=== PATIENT | male | born 1965 | race Two or more races ===

== ENCOUNTER 2020-08-23 13:26 | Outpatient (REF) | payer OTHER, SELFPAY | END 2020-08-23 13:27 | disposition home or self-care (01) | LOC: HO.LAB 13:26 | PROVIDERS: Visit Provider Internal Medicine | DX: Z20.828 Contact with and (suspected) exposure to other viral communicable diseases (principal) | CPT/HCPCS: U0003 ==

== ENCOUNTER 2020-09-26 16:41 | Outpatient (REF) | payer OTHER, SELFPAY | END 2020-09-26 16:42 | disposition home or self-care (01) | LOC: HO.LAB 16:41 | PROVIDERS: Internal Medicine; Visit Provider Internal Medicine | DX: Z20.828 Contact with and (suspected) exposure to other viral communicable diseases (principal) | CPT/HCPCS: U0003 ==

== ENCOUNTER 2021-01-04 12:50 | Outpatient (REF) | payer OTHER, SELFPAY ==
--- NOTE | ~2021-01-04 | US_ITS ---
EXAMINATION: US SOFT TISSUE NONVASCULAR CLINICAL INFORMATION: 55-year-old male with 2-3 month history palpable area mid medial right thigh. COMPARISON: None TECHNIQUE: Ultrasound of the right thigh is targeted to the area of clinical concern. Patient is able to point to the area of concern at time of imaging. Grayscale imaging and color Doppler are performed. FINDINGS: The submitted images suggest subtle heterogeneous echotexture within the mid medial thigh musculature at site of clinical concern measuring approximately 3.0 x 1.2 x 2.8 cm in size. There is no hyperemia. No cystic mass or edema tracking in soft tissue planes. There is no skin thickening. No abnormality subcutaneous space. US/US extremity nonvascular lowery IMPRESSION: Subtle nonspecific heterogeneous echotexture mid medial thigh musculature in area of clinical concern measuring approximately 3.0 x 1.2 x 2.8 cm. Recommend further evaluation with MRI without and with gadolinium contrast.
== END 2021-01-04 12:51 | disposition home or self-care (01) ==
LOC: HO.US 12:50
PROVIDERS: Visit Provider Internal Medicine
DX: R22.41 Localized swelling, mass and lump, right lower limb (principal)
CPT/HCPCS: 76882

== ENCOUNTER 2021-06-16 09:11 | Outpatient (REF) | payer OTHER, SELFPAY ==
[2021-06-16 10:23] LABS: Alanine Aminotransferase 25 U/L (0-40); Albumin Level 4.5 g/dL (3.5-5.0); Alkaline Phosphatase 91 U/L (39-117); Anion Gap 9 (12-20); Aspartate Amino Transferase 21 U/L (5-37); Bilirubin Total 1.2 mg/dL (0.0-1.0); Blood Urea Nitrogen 14 mg/dL (9-16); Calcium 9.5 mg/dL (8.4-10.2); Carbon Dioxide 30 mmol/L (22-29); Chloride 105 mmol/L (96-108); Cholesterol 156 mg/dL; Estimated Glomerular Filt Rate > 60; Glucose Fasting 148 mg/dL (60-99); HDL Cholesterol 37 mg/dL; LDL Cholesterol Calculated 96 mg/dl; Potassium 4.3 mmol/L (3.3-5.1); Sodium 140 mmol/L (135-145); Total Protein 7.1 g/dL (6.5-8.0); Triglycerides 118 mg/dL
[2021-06-21 12:41] LABS: Vitamin D 25-OH, D2 6 ng/mL; Vitamin D 25-OH, D3 16 ng/mL; Vitamin D 25-OH, Total 22 ng/mL (30-100)
== END 2021-06-16 09:12 | disposition home or self-care (01) ==
LOC: HO.LAB 09:11
PROVIDERS: PCP Internal Medicine; Visit Provider Internal Medicine
DX: R73.02 Impaired glucose tolerance (oral) (principal); E78.5 Hyperlipidemia, unspecified; E55.9 Vitamin D deficiency, unspecified
CPT/HCPCS: 36415; 80053; 80061; 82306

== ENCOUNTER 2021-07-18 10:44 | Outpatient (REF) | payer OTHER, SELFPAY ==
--- NOTE | ~2021-07-18 | XR_ITS ---
EXAMINATION: PRE-MRI ORBIT CLINICAL INFORMATION: Rule out implant prior to MRI COMPARISON: None TECHNIQUE: 3 views of the orbits FINDINGS: No radiopaque foreign body about the orbits is seen. There may be left maxillary sinus disease. There is dental hardware. XR/XR pre mri screening IMPRESSION: No radiopaque soft tissue foreign body seen about the orbits.
--- NOTE | ~2021-07-18 | MR_ITS ---
EXAMINATION: MR FEMUR WITHOUT AND WITH CONTRAST, RIGHT CLINICAL INFORMATION: Right thigh medial mass. COMPARISON: Extremity ultrasound dated 01/04/2021. TECHNIQUE: Multisequence MR imaging of the right femur was performed before and after the IV administration of 10 mL Gadavist contrast on a high-field strength scanner. FINDINGS: BONE: No abnormal marrow signal. No lytic or blastic osseous lesion. No postcontrast enhancement. MUSCLES/TENDONS: No evidence of acute muscle or tendon injury. No edema or enhancement to suggest acute strain or partial tearing. Within the medial aspect of the vastus medialis muscle in the region of the overlying skin markers there is a fat signal focus measuring 2.9 x 1.9 x 5.5 cm (AP x ML x CC). No postcontrast enhancement, vascularity, or septation. 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 SOFT TISSUES: No additional soft tissue mass or fluid collection. MR/MR femur RT wo/w con IMPRESSION: Within the medial aspect of the vastus medialis muscle in the region of the overlying skin markers there is a fat signal focus measuring up to 5.5 cm without postcontrast enhancement, vascularity, or septations. 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
== END 2021-07-18 10:45 | disposition home or self-care (01) ==
LOC: HO.MRI 10:44
PROVIDERS: PCP Internal Medicine; Visit Provider Internal Medicine
DX: R22.41 Localized swelling, mass and lump, right lower limb (principal)
CPT/HCPCS: 73720; A9585

== ENCOUNTER 2021-07-21 08:46 | Outpatient (REF) | payer OTHER, SELFPAY ==
[2021-07-21 09:43] LABS: Alanine Aminotransferase 24 U/L (0-40); Albumin Level 4.3 g/dL (3.5-5.0); Alkaline Phosphatase 90 U/L (39-117); Anion Gap 9 (12-20); Aspartate Amino Transferase 21 U/L (5-37); Blood Urea Nitrogen 9 mg/dL (9-16); Calcium 9.3 mg/dL (8.4-10.2); Carbon Dioxide 29 mmol/L (22-29); Chloride 107 mmol/L (96-108); Estimated Glomerular Filt Rate > 60; Glucose Fasting 130 mg/dL (60-99); Potassium 4.2 mmol/L (3.3-5.1); Sodium 141 mmol/L (135-145); Total Protein 6.8 g/dL (6.5-8.0)
== END 2021-07-21 08:47 | disposition home or self-care (01) ==
LOC: HO.LAB 08:46
PROVIDERS: PCP Internal Medicine; Visit Provider Internal Medicine
DX: R73.02 Impaired glucose tolerance (oral) (principal)
CPT/HCPCS: 36415; 80053

== ENCOUNTER 2021-12-04 11:16 | Emergency (ER) | payer OTHER, SELFPAY ==
--- NOTE | ~2021-12-04 | US_ITS ---
EXAMINATION: US ABDOMEN LIMITED CLINICAL INFORMATION: Right upper quadrant pain.. COMPARISON: None TECHNIQUE: Real-time imaging of the gallbladder FINDINGS: The gallbladder is upper normal in size. The gallbladder appears filled with layering echogenic material probably representing a combination of sludge and small stones or gravel. Gallbladder wall does not appear thickened measuring 2 mm. There is no pericholecystic fluid. The common bile duct is normal in caliber measuring 0.4 cm. There is a 1 cm cyst in the right lobe. US/US abdomen limited IMPRESSION: Upper normal-size gallbladder. Dependent layering echogenic material probably representing a combination of sludge and small stones or gravel.
[2021-12-04 11:46] VITALS: BP 141/81; PULSE 64; RESP 18; TEMP 36.3; O2SAT 98; BMI 34.7
--- NOTE | 2021-12-04 11:56 | ECG_ITS ---
Test Reason : UPPER ABDOMINAL PAIN Blood Pressure : / mmHG Vent. Rate : 064 BPM Atrial Rate : 064 BPM P-R Int : 146 ms QRS Dur : 088 ms QT Int : 394 ms P-R-T Axes : 037 -09 034 degrees QTc Int : 406 ms Normal sinus rhythm with sinus arrhythmia Normal ECG No previous ECGs available Referred By: Generic ED Physician Electronically Signed By:GOMEZ SULLIVAN MD
[2021-12-04 12:14] LABS: MANUAL DIFF FLAG NO
[2021-12-04 12:16] LABS: Basophils Percent Auto 0.4 % (0-2); Eosinophils Absolute Auto 0.1 X10*3/uL (0.0-0.4); Eosinophils Percent Auto 0.9 % (0-4); Hematocrit 40.6 % (42.0-52.0); Hemoglobin 14.2 g/dl (14.0-18.0); Imm Gran Abs Auto 0.04 X10*3/uL (0.00-0.03); Imm Gran Pct Auto 0.4 % (0.0-0.4); Lymphocytes Absolute Auto 1.7 X10*3/uL (1.2-4.9); Lymphocytes Percent Auto 18.4 % (20-40); Mean Corpuscular Hemoglobin 30.3 pg (27.0-33.0); Mean Corpuscular Volume 86.6 fL (80.0-98.0); Mean Platelet Volume 10.4 fL (9.4-12.4); Monocytes Absolute Auto 0.7 X10*3/uL (0.1-1.2); Neutrophils Absolute Auto 6.8 x10*3/uL (2.0-8.3); Neutrophils Percent Auto 72.9 % (45-73); Platelet Count 203 X10*3/uL (160-400); Red Blood Count 4.69 X10*6/uL (4.60-5.80); Red Cell Distribution Width 11.6 % (11.0-16.0); White Blood Count 9.3 X10*3/uL (4.8-10.8)
[2021-12-04 12:35] LABS: Alanine Aminotransferase 22 U/L (0-40); Albumin Level 4.6 g/dL (3.5-5.0); Alkaline Phosphatase 88 U/L (39-117); Anion Gap 9 (12-20); Aspartate Amino Transferase 19 U/L (5-37); Bilirubin Total 0.7 mg/dL (0.0-1.0); Blood Urea Nitrogen 8 mg/dL (9-16); Calcium 9.8 mg/dL (8.4-10.2); Carbon Dioxide 29 mmol/L (22-29); Chloride 104 mmol/L (96-108); Estimated Glomerular Filt Rate > 60; Glucose Random 144 mg/dL (60-115); Potassium 4.7 mmol/L (3.3-5.1); Sodium 137 mmol/L (135-145); Total Protein 7.3 g/dL (6.5-8.0)
[2021-12-04 12:40] LABS: Troponin-I High Sensitivity < 3.5 ng/L (<3.5-35.0)
[2021-12-04 13:02] LABS: Lipase 22 U/L (8-78)
--- NOTE | 2021-12-04 13:26 | ED_ITS ---
HPI - Abdominal Pain General Chief Complaint: Abdominal Pain Stated Complaint: upper abd pain quest gall bladder Time Seen by Provider: 12/04/21 12:42 Source: patient and felt dyeing machine tender Mode of arrival: ambulatory Limitations: language barrier History of Present Illness HPI narrative: 56-year-old male with a history of diabetes, depression here with reports epigastric pain/RUQ which radiates to the back since 04:00 o'clock this morning. No nausea, vomiting, diarrhea, constipation, urinary symptoms, fevers or chil ls. Patient has had intermittent episodes over the last month that it occurs after eating food Related Data Home Medications Medication Instructions Recorded Confirmed acetaminophen 500 mg tablet 0 mg PO 12/26/20 11/30/21 fluoxetine 20 mg capsule 0 mg PO 12/26/20 11/30/21 fluticasone propionate 50 1 spray INTRANASAL DAILY 12/26/20 11/30/21 mcg/actuation nasal spray,suspension ibuprofen 800 mg tablet 800 mg PO TID 12/26/20 11/30/21 zolpidem 10 mg tablet 10 mg PO BEDTIME PRN 12/26/20 11/30/21 Allergies Allergy/AdvReac Type Severity Reaction Status Date / Time No Known Allergies Allergy Verified 11/30/21 09:12 [No Known Allergies*] Review of Systems Review of Systems Yes all other systems are reviewed and are negative Constitutional: Reports no additional constitutional complaints, Denies body ache(s), Denies chills, Denies fever(s), Denies headache(s) and Denies weakness Eyes: Reports no additional eye complaints and Denies change in vision Reports system reviewed and no additional complaints, except as documented, Denies dizziness, Denies headache(s), Denies nasal congestion, Denies nasal discharge and Denies neck pain Cardiovascular: Reports no additional cardiovascular complaints, Denies chest pain, Denies leg edema and Denies dyspnea Respiratory: Reports no additional respiratory complaints, Denies cough and Denies dyspnea Gastrointestinal: Reports no additional gastrointestinal complaints, Reports abdominal pain, Denies diarrhea, Denies nausea and Denies vomiting Genitourinary: Denies urinary incontinence Musculoskeletal: Reports no additional musculoskeletal complaints, Denies back pain, Denies arthralgias, Denies joint swelling, Denies neck pain, Denies numbness and Denies tingling Skin/Breast: Reports system reviewed and no additional complaints, except as docu and Denies rash Reports system reviewed and no additional complaints, except as documented, Denies Abnormal speech present, Denies dizziness, Denies headache(s), Denies numbness, Denies tingling and Denies weakness PMFSH Past Medical History Attestation statement: The following information was validated with the patient. Source: old records reviewed and nursing notes reviewed Medical History Allergic rhinitis Class 1 obesity with body mass index (BMI) of 33.0 to 33.9 in adult Depression Diabetes mellitus Hypovitaminosis D Impaired glucose tolerance Insomnia Left elbow pain Mass of right thigh Mild recurrent major depression Right upper quadrant abdominal pain Surgical History History of appendectomy History of eye surgery Family History Family History Father Diabetes Stroke Mother Skin cancer Son In good health Daughter In good health Social History Social History Housing: House Alcohol intake: never Patient Tobacco Use Status: Never used Tobacco e-Cigarette/Vaping Use: Never Used Second Hand Smoke Exposure: No Advance Directives: No Advance Directives Information Provided: No service: No Current occupational status: retired Physical Exam ED Vital Signs: Vital Signs - 24 hr 12/04/21 11:46 12/04/21 13:31 Temperature 97.4 F 98.0 F Pulse Rate 64 56 Respiratory Rate 18 18 Blood Pressure 141/81 H 147/80 H Pulse Oximetry 98 97 BMI result Body Mass Index 34.7 Const General: cooperative, healthy appearing, comfortable and no acute distress Orientation/consciousness: patient oriented x3 Limitations: no limitations HENMT Head: Yes normal to inspection Ears: hearing grossly normal bilaterally General nose exam: Normal external nose present Face and sinus: Yes normal facial exam Mouth: Normal oral and palatal mucosa present Throat: Yes posterior oropharynx normal and Yes tonsils normal Eyes General: appearance normal, both eyes and all related structures Pupils: Equal, round and reactive pupils present Neck Neck: Yes normal visual inspection, Yes full ROM, Yes no lymphadenopathy and Yes no meningeal signs Chest Chest palpation & inspection: normal inspection of the chest Resp Effort & Inspection: normal respiratory effort Auscultation: clear to auscultation bilaterally Cardio Rate: regular rate Peripheral pulses: Peripheral pulses 2+ throughout GI Inspection: Yes normal to inspection Palpation (GI): Soft to palpation and Tenderness to palpation present (GI) (Right upper quadrant with guarding. No rebound) Auscultation: normal bowel sounds General: Yes no CVA tenderness Back/Spine/Pelvis Back: no CVA tenderness Skin General skin exam: no rashes or lesions noted Neuro General: patient oriented x3, moves all extremities and no meningeal signs Cranial nerves: Yes CN's II-XII intact bilaterally, Yes Equal, round and reactive pupils present, Yes Bilaterally intact EOM present, Yes Nystagmus not present, Yes Normal facial strength present and Yes Midline tongue present Cognition (Neuro): normal cognition Speech: No Abnormal speech present Gait exam (Neuro): Normal gait present Motor exam (neuro): 5/5 motor strength present throughout Sensory Exam: Normal double simultaneous stimulation for sensation Extrem General: Yes normal to inspection, Yes full ROM and Yes capillary refill normal Course Course Course Narrative: 56-year-old male here with intermittent episodes of epigastric pain/RUQ which occurs after eating now with having episodes since 04:00 o'clock this morning with no associated vomiting, diarrhea or fever. Will check labs, UA, abdominal ultrasound. Will check EKG due to age 1500-labs, UA, EKG are unremarkable. Ultrasound shows upper normal size gallbladder with dependent sludge and/or small stones. No evidence of gallbladder wall thickening. No pericholecystic fluid. Patient is feeling improved when I re-evaluated him. He is tolerating p.o.. We discussed he should follow-up outpatient with General surgery. We discussed following a low- fat diet at home. Recommended he return for severe pain, vomiting or fever. Comfortable discharge home. MDM - Abdominal Pain MDM Narrative Medical decision making narrative: Pancreatitis, gastritis, GERD, cholecystitis Medical Records Attestation: I reviewed the patient's medical records. Lab Data Attestation: I reviewed the patient's lab results. Result diagrams: 12/04/21 12:08 12/04/21 12:08 Labs: Lab Results 12/04/21 12/04/21 12/04/21 Range/Units 12:08 12:08 12:08 WBC 9.3 (4.8-10.8) X10*3/uL RBC 4.69 (4.60-5.80) X10*6/uL Hgb 14.2 (14.0-18.0) g/dl Hct 40.6 L (42.0-52.0) % MCV 86.6 (80.0-98.0) fL MCH 30.3 (27.0-33.0) pg MCHC 35.0 (31.0-36.0) g/dl RDW 11.6 (11.0-16.0) % Plt Count 203 (160-400) X10*3/uL MPV 10.4 (9.4-12.4) fL Immature Gran % (Auto) 0.4 (0.0-0.4) % Neut % (Auto) 72.9 (45-73) % Lymph % (Auto) 18.4 L (20-40) % Millard % (Auto) 7.0 (2-11) % Eos % (Auto) 0.9 (0-4) % Baso % (Auto) 0.4 (0-2) % Lymph # (Auto) 1.7 (1.2-4.9) X10*3/uL Millard # (Auto) 0.7 (0.1-1.2) X10*3/uL Eos # (Auto) 0.1 (0.0-0.4) X10*3/uL Baso # (Auto) 0.0 (0.0-0.2) X10*3/uL Abs Immat Gran (auto) 0.04 H (0.00-0.03) X10*3/uL Absolute Neuts (auto) 6.8 (2.0-8.3) x10*3/uL Absolute Nucleated RBC 0.000 (0.0-0.012) X10*3/uL Nucleated RBC % (auto) 0.0 (0.0-0.2) /100WBC Sodium 137 (135-145) mmol/L Potassium 4.7 (3.3-5.1) mmol/L Chloride 104 (96-108) mmol/L Carbon Dioxide 29 (22-29) mmol/L Anion Gap 9 L (12-20) BUN 8 L (9-16) mg/dL Creatinine 0.94 (0.5-1.4) mg/dL Estim Creat Clear Calc 108.0 Estimated GFR > 60 Random Glucose 144 H (60-115) mg/dL Calcium 9.8 (8.4-10.2) mg/dL Total Bilirubin 0.7 (0.0-1.0) mg/dL AST 19 (5-37) U/L ALT 22 (0-40) U/L Alkaline Phosphatase 88 (39-117) U/L Troponin I High Sens < 3.5 (<3.5-35.0) ng/L Total Protein 7.3 (6.5-8.0) g/dL Albumin 4.6 (3.5-5.0) g/dL Lipase 22 (8-78) U/L Urine Color Urine Appearance Urine pH (5.0-8.0) Ur Specific Williams (1.005-1.025) Urine Protein (NEG-TRACE) MG/DL Urine Glucose (UA) (NEG) MG/DL Urine Ketones (NEG) MG/DL Urine Blood (NEG) Urine Nitrite (NEG) Ur Leukocyte Esterase (NEG) Urine RBC (0) /HPF Urine WBC (0-4) /HPF Ur Squamous Epith Cells /LPF Urine Bacteria /LPF 12/04/21 Range/Units 13:40 WBC (4.8-10.8) X10*3/uL RBC (4.60-5.80) X10*6/uL Hgb (14.0-18.0) g/dl Hct (42.0-52.0) % MCV (80.0-98.0) fL MCH (27.0-33.0) pg MCHC (31.0-36.0) g/dl RDW (11.0-16.0) % Plt Count (160-400) X10*3/uL MPV (9.4-12.4) fL Immature Gran % (Auto) (0.0-0.4) % Neut % (Auto) (45-73) % Lymph % (Auto) (20-40) % Millard % (Auto) (2-11) % Eos % (Auto) (0-4) % Baso % (Auto) (0-2) % Lymph # (Auto) (1.2-4.9) X10*3/uL Millard # (Auto) (0.1-1.2) X10*3/uL Eos # (Auto) (0.0-0.4) X10*3/uL Baso # (Auto) (0.0-0.2) X10*3/uL Abs Immat Gran (auto) (0.00-0.03) X10*3/uL Absolute Neuts (auto) (2.0-8.3) x10*3/uL Absolute Nucleated RBC (0.0-0.012) X10*3/uL Nucleated RBC % (auto) (0.0-0.2) /100WBC Sodium (135-145) mmol/L Potassium (3.3-5.1) mmol/L Chloride (96-108) mmol/L Carbon Dioxide (22-29) mmol/L Anion Gap (12-20) BUN (9-16) mg/dL Creatinine (0.5-1.4) mg/dL Estim Creat Clear Calc Estimated GFR Random Glucose (60-115) mg/dL Calcium (8.4-10.2) mg/dL Total Bilirubin (0.0-1.0) mg/dL AST (5-37) U/L ALT (0-40) U/L Alkaline Phosphatase (39-117) U/L Troponin I High Sens (<3.5-35.0) ng/L Total Protein (6.5-8.0) g/dL Albumin (3.5-5.0) g/dL Lipase (8-78) U/L Urine Color YELLOW Urine Appearance CLEAR Urine pH 6.5 (5.0-8.0) Ur Specific Williams 1.015 (1.005-1.025) Urine Protein NEG (NEG-TRACE) MG/DL Urine Glucose (UA) NEG (NEG) MG/DL Urine Ketones NEG (NEG) MG/DL Urine Blood TRACE (NEG) Urine Nitrite NEG (NEG) Ur Leukocyte Esterase NEG (NEG) Urine RBC 1-4 (0) /HPF Urine WBC 0 (0-4) /HPF Ur Squamous Epith Cells NONE /LPF Urine Bacteria NONE /LPF Imaging Data US - abdomen: Attestation: I personally reviewed and interpreted this imaging study as follows: Radiologist's impression: FINDINGS: The gallbladder is upper normal in size. The gallbladder appears filled with layering echogenic material probably representing a combination of sludge and small stones or gravel. Gallbladder wall does not appear thickened measuring 2 mm. There is no pericholecystic fluid. The common bile duct is normal in caliber measuring 0.4 cm. There is a 1 cm cyst in the right lobe. US/US abdomen limited IMPRESSION: Upper normal-size gallbladder. Dependent layering echogenic material probably representing a combination of sludge and small stones or gravel. ECG Data Attestation: I personally reviewed and interpreted this ECG as follows: ECG interpretation date: 12/04/21 ECG interpretation time: 11:59 Interpretation: Normal sinus rhythm with sinus arrhythmia with a rate of 64, normal LA, normal QRS, normal QT Discharge Plan Discharge Clinical Impression: Gallstones Patient Disposition: Home, Self-Care Instructions: Gallstones (ED) Additional Instructions: Low-fat diet. Fat will trigger attacks of pain Call the surgeon to follow-up Prescriptions: No Action zolpidem 10 mg tablet 10 mg PO BEDTIME PRN0RF fluoxetine 20 mg capsule 0 mg PO 0RF fluticasone propionate 50 mcg/actuation spray,suspension 1 spray intranasal DAILY 0RF ibuprofen 800 mg tablet 800 mg PO TID 0RF acetaminophen 500 mg tablet 0 mg PO 0RF Referrals: Joe Dennis MD [Physician] - 2 days Print Language: Maldivian
[2021-12-04 13:31] VITALS: BP 147/80; PULSE 56; RESP 18; TEMP 36.7; O2SAT 97
[2021-12-04] MEDS: Ketorolac Tromethamine 60 MG/2 ML VIAL IM (13:48)
[2021-12-04 13:52] LABS: Appearance Urine CLEAR; Color Urine YELLOW; Glucose Urine UA NEG (NEG); Leukocyte Esterase Urine NEG (NEG); Nitrite Urine NEG (NEG); PH 6.5 (5.0-8.0); Specific Gravity - Urine 1.015 (1.005-1.025); UACC Culture Trigger NO; Urine Blood TRACE (NEG); Urine Ketones NEG (NEG); Urine Protein NEG (NEG-TRACE)
[2021-12-04 14:27] LABS: WBC Urine 0 /HPF (0-4)
== END 2021-12-04 15:11 | disposition home or self-care (01) ==
PROVIDERS: Physician Assistant Medical; Emergency Provider Emergency Medicine; PCP Internal Medicine
DX: K80.20 Calculus of gallbladder without cholecystitis without obstruction (principal); R10.11 Right upper quadrant pain; E11.9 Type 2 diabetes mellitus without complications
CPT/HCPCS: 36415; 76705; 80053; 81001; 81003; 83690; 84484; 85025; 93005; 96372; 99284; J1885

== ENCOUNTER 2022-08-28 11:16 | Outpatient (REF) | payer OTHER, SELFPAY ==
[2022-08-28 11:26] LABS: MANUAL DIFF FLAG NO
[2022-08-28 12:46] LABS: Basophils Absolute Auto 0.1 X10*3/uL (0.0-0.2); Basophils Percent Auto 1.1 % (0-2); Eosinophils Absolute Auto 0.1 X10*3/uL (0.0-0.4); Eosinophils Percent Auto 1.8 % (0-4); Hematocrit 40.7 % (42.0-52.0); Hemoglobin 14.2 g/dl (14.0-18.0); Imm Gran Abs Auto 0.03 X10*3/uL (0.00-0.03); Imm Gran Pct Auto 0.5 % (0.0-0.4); Lymphocytes Absolute Auto 1.8 X10*3/uL (1.2-4.9); Lymphocytes Percent Auto 28.6 % (20-40); Mean Corpuscular HGB Conc 34.9 g/dl (31.0-36.0); Mean Corpuscular Hemoglobin 30.4 pg (27.0-33.0); Mean Corpuscular Volume 87.2 fL (80.0-98.0); Mean Platelet Volume 11.2 fL (9.4-12.4); Monocytes Absolute Auto 0.6 X10*3/uL (0.1-1.2); Monocytes Percent Auto 8.9 % (2-11); Neutrophils Absolute Auto 3.7 x10*3/uL (2.0-8.3); Neutrophils Percent Auto 59.1 % (45-73); Platelet Count 185 X10*3/uL (160-400); Red Blood Count 4.67 X10*6/uL (4.60-5.80); Red Cell Distribution Width 11.7 % (11.0-16.0); White Blood Count 6.2 X10*3/uL (4.8-10.8)
[2022-08-28 13:07] LABS: Creatinine Urine 184.72 mg/dL; Microalbum/Creatinine Ratio Ur 3.2 ug/mg cr
[2022-08-28 13:36] LABS: Alanine Aminotransferase 16 U/L (0-40); Albumin Level 4.4 g/dL (3.5-5.0); Alkaline Phosphatase 79 U/L (39-117); Anion Gap 10 (12-20); Aspartate Amino Transferase 22 U/L (5-37); Bilirubin Total 0.7 mg/dL (0.0-1.0); Blood Urea Nitrogen 11 mg/dL (9-16); Calcium 9.4 mg/dL (8.4-10.2); Carbon Dioxide 26 mmol/L (22-29); Chloride 107 mmol/L (96-108); Cholesterol 170 mg/dL; Estimated Glomerular Filt Rate > 60; Glucose Fasting 120 mg/dL (60-99); HDL Cholesterol 34 mg/dL; LDL Cholesterol Calculated 110 mg/dl; Sodium 139 mmol/L (135-145); Total Protein 6.8 g/dL (6.5-8.0); Triglycerides 134 mg/dL; Vitamin D 25-OH Total 18.2 ng/mL (>30)
== END 2022-08-28 11:17 | disposition home or self-care (01) ==
LOC: HO.LAB 11:16
PROVIDERS: PCP Internal Medicine; Visit Provider Internal Medicine
DX: E66.9 Obesity, unspecified (principal); Z68.33 Body mass index [BMI] 33.0-33.9, adult; E78.5 Hyperlipidemia, unspecified; E11.9 Type 2 diabetes mellitus without complications; K21.9 Gastro-esophageal reflux disease without esophagitis; E55.9 Vitamin D deficiency, unspecified; R22.41 Localized swelling, mass and lump, right lower limb
CPT/HCPCS: 36415; 80053; 80061; 82043; 82306; 85025

== ENCOUNTER 2022-11-05 09:16 | Outpatient (REF) | payer OTHER, SELFPAY ==
[2022-11-05 10:17] LABS: Alanine Aminotransferase 19 U/L (0-40); Albumin Level 4.4 g/dL (3.5-5.0); Alkaline Phosphatase 81 U/L (39-117); Anion Gap 9 (12-20); Aspartate Amino Transferase 18 U/L (5-37); Bilirubin Total 0.8 mg/dL (0.0-1.0); Blood Urea Nitrogen 10 mg/dL (9-16); Calcium 9.5 mg/dL (8.4-10.2); Carbon Dioxide 28 mmol/L (22-29); Chloride 108 mmol/L (96-108); Cholesterol 166 mg/dL; Estimated Glomerular Filt Rate > 60; Glucose Fasting 142 mg/dL (60-99); HDL Cholesterol 36 mg/dL; LDL Cholesterol Calculated 101 mg/dl; Potassium 4.1 mmol/L (3.3-5.1); Sodium 141 mmol/L (135-145); Total Protein 6.9 g/dL (6.5-8.0); Triglycerides 145 mg/dL
[2022-11-05 10:23] LABS: Microalbum/Creatinine Ratio Ur 3.2 ug/mg cr
[2022-11-08 17:08] LABS: Vitamin D 25-OH, D2 <4 ng/mL; Vitamin D 25-OH, D3 14 ng/mL; Vitamin D 25-OH, Total 14 ng/mL (30-100)
== END 2022-11-05 09:17 | disposition home or self-care (01) ==
LOC: HO.LAB 09:16
PROVIDERS: PCP Internal Medicine; Visit Provider Internal Medicine
DX: E11.9 Type 2 diabetes mellitus without complications (principal); E55.9 Vitamin D deficiency, unspecified
CPT/HCPCS: 36415; 80053; 80061; 82043; 82306

== ENCOUNTER 2022-11-17 10:48 | Outpatient (REF) | payer OTHER, SELFPAY ==
[2022-11-17 12:16] LABS: Alanine Aminotransferase 28 U/L (0-40); Albumin Level 4.3 g/dL (3.5-5.0); Alkaline Phosphatase 82 U/L (39-117); Anion Gap 13 (12-20); Aspartate Amino Transferase 23 U/L (5-37); Bilirubin Total 1.4 mg/dL (0.0-1.0); Blood Urea Nitrogen 11 mg/dL (9-16); Calcium 9.4 mg/dL (8.4-10.2); Carbon Dioxide 26 mmol/L (22-29); Chloride 107 mmol/L (96-108); Cholesterol 165 mg/dL; Estimated Glomerular Filt Rate > 60; Glucose Fasting 144 mg/dL (60-99); HDL Cholesterol 38 mg/dL; LDL Cholesterol Calculated 106 mg/dl; Potassium 4.2 mmol/L (3.3-5.1); Sodium 142 mmol/L (135-145); Total Protein 6.7 g/dL (6.5-8.0); Triglycerides 109 mg/dL
== END 2022-11-17 10:49 | disposition home or self-care (01) ==
LOC: HO.LAB 10:48
PROVIDERS: PCP Internal Medicine; Visit Provider Internal Medicine
DX: Z00.00 Encounter for general adult medical examination without abnormal findings (principal); Z12.5 Encounter for screening for malignant neoplasm of prostate; E78.5 Hyperlipidemia, unspecified
CPT/HCPCS: 36415; 80053; 80061; 84153

== ENCOUNTER → 2023-06-26 13:51 | Outpatient (BNVA) | payer OTHER, SELFPAY | PROVIDERS: PCP Internal Medicine; Visit Provider Nurse Practitioner Family ==

== ENCOUNTER 2023-11-19 09:04 | Outpatient (AMB) | payer OTHER, SELFPAY ==
--- NOTE | 2023-11-19 09:57 | A.OFFPC_ITS ---
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 Accompanied by: Self / Same As Patient Allergies No Known Allergies [No Known Allergies*] Allergy (Verified 11/19/23 10:17) Medication List - Last Reconciled 11/19/23 by Raquel Mcduffie MD bisacodyl (Dulcolax (bisacodyl)) 10 mg (2 x 5 mg) PO ONCE 1 day cholecalciferol (vitamin D3) 50 mcg PO DAILY 90 days cholestyramine (with sugar) 4 gram 4 grams PO DAILY PRN 60 days fluoxetine 0 mg PO fluticasone propionate 50 mcg/actuation 1 spray intranasal DAILY hydrocortisone 1% (Anti-Itch (hydrocortisone)) 1 appl topical TID PRN 30 days ibuprofen 800 mg PO TID loratadine 10 mg PO DAILY 90 days omeprazole 20 mg PO DAILY 90 days polyethylene glycol 3350 (Miralax) 238 grams PO ONCE zolpidem 10 mg PO BEDTIME PRN Tobacco use date assessed: 11/06/22 Dental Screening Dental Screen Date: 11/19/23 Did you have a dental visit in the last 12 months?: No Did you have a dental problem in the last 6 months where you did not have access to dental care?: No Was dental information given to patient?: Patient has dentist HPI HPI Comments History of Present Illness Details This is a 58-year-old male with mild recurrent major depression that comes for his physical exam. Depression has been stable with SSRIs. Last colonoscopy was 2018 showing multiple polyps few of them being tubular adenoma. Was seen by Gastroenterology but he had to cancel his colonoscopy. Patient said that he will call to schedule his colonoscopy this year. No chest pain or shortness of breath. No polyuria or polydipsia. No changes in weight. [facility] Medical History Right upper quadrant abdominal pain Hypovitaminosis D Class 1 obesity with body mass index (BMI) of 33.0 to 33.9 in adult Mild recurrent major depression Mass of right thigh Left elbow pain Allergic rhinitis Depression Impaired glucose tolerance Insomnia Surgical History (Updated 11/19/23 @ 10:23 by Raquel Mcduffie MD) History of cholecystectomy History of eye surgery History of appendectomy Family History Father Diabetes Stroke Mother Skin cancer Son In good health Daughter In good health Social History Housing: House Alcohol intake: never Patient Tobacco Use Status: Never used Tobacco e-Cigarette/Vaping Use: Never Used Second Hand Smoke Exposure: No service: No Current occupational status: retired Cognitive needs: No Hearing needs: No Vision needs: No Questionnaire PHQ-9 Over the last 2 weeks, how often have you been bothered by any of the following problems? 1. Little interest or pleasure in doing things: several days 2. Feeling down, depressed, or hopeless: several days 3. Trouble falling or staying asleep, or sleeping too much: not at all 4. Feeling tired or having little energy: not at all 5. Poor appetite or overeating: not at all 6. Feeling bad about yourself - or that you are a failure or have let yourself or your family down: not at all 7. Trouble concentrating on things, such as reading the newspaper or watching television: not at all 8. Moving or speaking so slowly that other people could have noticed. Or the opposite - being so fidgety or restless that you have been moving around a lot more than usual: not at all 9. Thoughts that you would be better off or of hurting yourself in some way: not at all Total score: 2 Depression Screening Interpretation: Negative Depression Screening Done: Yes 01948 - PHQ-9 Billing: Yes Source: Developed by Drs. Rolf Crespo, Collette Machado, Trent Nicholas and colleagues, with an educational eduardo from [employer]. Thrive Questionnaire Date Thrive assessed: 11/19/23 I am a: Patient What is your living situation today?: I have a steady place to live Within the past 12 months, did the food you bought not last and you didn't have the money to get more?: Never true Within the past 12 months, did you worry whether your food would run out before you got money to buy more?: Never true Do you have trouble paying for medicines?: No Do you have trouble getting transportation to medical appointments?: No Do you have trouble paying your heating and electricity bill?: No Do you have trouble taking care of your child, family member or friend?: No Do you have trouble with day-to-day activities such as bathing, preparing meals, shopping, managing finances, etc.?: No Are you currently unemployed and looking for a job?: No Are you interested in more education?: No Please select the resources that you would like help with: None Currently or been in a relationship where the following occur: no concerns reported THRIVE Score: 0 AUDIT C Alcohol Use Questionnaire (AUDIT-C) 1. How often do you have a drink containing alcohol?: Never Total Score: 0 Score Reviewed/Action Taken: No WILLAM-7 AMB Questionnaire WILLAM-7 Date WILLAM - 7 assessed: 11/19/23 Feeling nervous, anxious, or on edge: 1 = Several days Not being able to stop or control worryin = Not at all Worrying too much about different things: 0 = Not at all Trouble relaxin = Not at all Being so restless that it is hard to sit still: 0 = Not at all Becoming easily annoyed or irritable: 0 = Not at all Feeling afraid as if something awful might happen: 0 = Not at all Total WILLAM-7 score (0-4 normal; 5-9 mild; 10-14 moderate; 15-21 severe): 1 Source: Developed by Drs. Rolf Crespo, Collette Machado, Trent Nicholas and colleagues, with an educational eduardo from [employer]. WILLAM-7 Assessment Billing WILLAM-7 Assessment Tool: WILLAM-7 Assessment 08265 Review of Systems Const All systems reviewed & are unremarkable except as noted in HPI and below Eyes Reports no additional complaints, Denies change in vision and Denies other visual disturbances Card Denies chest pain at rest, Denies chest pain with activity, Denies edema, Denies irregular heart rhythm, Denies claudication, Denies dyspnea, Denies dyspnea on exertion, Denies orthopnea, Denies paroxysmal nocturnal dyspnea and Denies slow heart rate Resp Denies cough, Denies dyspnea and Denies dyspnea on exertion GI Denies abdominal pain, Denies change in bowel habits, Denies excessive flatus, Denies nausea and Denies vomiting Denies urinary hesitancy, Denies urinary incontinence and Denies urinary urgency Musc Denies abnormal gait, Denies atrophy, Denies deformity and Denies limited range of motion Skin/Breast Denies bleeding lesions, Denies changing lesions and Denies rash Neuro Denies abnormal gait, Denies behavioral changes, Denies confusion and Denies lack of coordination Psych Denies behavioral changes and Denies confusion Physical exam (Primary Care) Vital Signs: Last Vital Signs BP 130/86 11/19/23 10:00 BMI result Body Mass Index 34.3 Tobacco/Smoking Status: Tobacco use Status Tobacco use date assessed 11/06/22 11/19/23 09:58 Patient Tobacco Use Status Never used Tobacco 11/19/23 09:58 e-Cigarette/Vaping Use Never Used 11/19/23 09:58 PHQ-9: PHQ-9 Score PHQ-9: Total score 2 11/19/23 10:32 Depression Screening Interpretation: Negative Thrive Assessment: Date of Thrive Assessment Date Thrive assessed 11/19/23 11/19/23 10:05 Currently or been in a relationship where the following occur: no concerns reported Const General: No confusion Orientation/consciousness: patient oriented x3 and No confusion HENMT Head: Yes normal to inspection, Yes normocephalic and Yes atraumatic Ears: external ears normal Eyes General: appearance normal, both eyes and all related structures Eyelids: Yes eyelids normal Conjunctivae: conjunctivae normal Neck Neck: Yes normal visual inspection and Yes supple Resp Effort & Inspection: normal respiratory effort Auscultation: clear to auscultation bilaterally Cardio Jugular venous distension: no JVD Rate: regular rate Rhythm: regular rhythm Heart sounds: S1 normal heart sound present and S2 normal heart sound present GI Inspection: Yes normal to inspection Palpation (GI): Soft to palpation and nontender Auscultation: normal bowel sounds Skin General skin exam: no rashes or lesions noted Neuro General: patient oriented x3, no focal motor deficits and No confusion Extrem General: Yes full ROM Psych Appearance: grossly normal Office Procedures Flu Questionnaire Does the patient have a severe egg allergy?: No Does the patient have severe life threatening allergies?: No Does the patient have a fever or illness today?: No Has the patient ever had Guillain-Zoar Syndrome?: No Has the patient ever had any past reaction to a flu shot?: No Immunizations flu vacc [id number] 6mos up(PF) 60 mcg(15 mcgx4)/0.5 mL IM syringe Performing Provider: Raquel Mcduffie MD [facility] Administered by: ADRIAN Friend on 11/19/23 10:33 Dose Route Admin Location Dispensed Lot Number Expiration Date NDC Banquet Captain 0.5 mL IM Left Deltoid 0.5 mL [id number] 04/19/24 14694-704-49 [employer] Fut[employer] VIS Given Date VIS Provided VIS Publication Date 11/19/23 Single Vaccine 21 Eligibility Eligibility Date Funding Source Not [facility] Eligible 11/19/23 Private Assessment and Plan Assessment & Plan (1) Physical exam: Code(s): Z00.00 - Encounter for general adult medical examination without abnormal findings Plan: Repeat in a year. (2) Mild recurrent major depression: Code(s): F33.0 - Major depressive disorder, recurrent, mild Plan: Continue SSRIs. Orders: Orders Lipid Panel Today E78.5 - Hyperlipidemia, unspecified, Z00.00 - Encounter for general adult medical examination without abnormal findings Vitamin D 25-OH Total Today E55.9 - Vitamin D deficiency, unspecified Comprehensive [facility]. Panel Fast Today Z00.00 - Encounter for general adult me dical examination without abnormal findings Influenza [id number] Immunization Today Z23 - Encounter for immunization Coding Level of Care Code Est Pt Prev Care 40-64y(06536) Diagnoses Physical exam Z00.00 Mild recurrent major depression F33.0 Additional Codes WILLAM-7 Assessment Billing - WILLAM-7 Assessment Tool: WILLAM-7 Assessment [id number] ([id number]) Time Spent (min) 32
[2023-11-19 10:00] VITALS: BP 130/86; BMI 34.3
== END 2023-11-19 10:34 | disposition home or self-care (01) ==
PROVIDERS: Visit Provider Internal Medicine
DX: Z23 Encounter for immunization (principal); Z00.00 Encounter for general adult medical examination without abnormal findings; F33.0 Major depressive disorder, recurrent, mild
CPT/HCPCS: 90471; 90686; 99396

== ENCOUNTER 2024-05-18 07:59 | Outpatient (REF) | payer MEDICARE, SELFPAY ==
[2024-05-18 09:20] LABS: Alanine Aminotransferase 18 U/L (0-40); Albumin Level 4.4 g/dL (3.5-5.0); Alkaline Phosphatase 83 U/L (39-117); Anion Gap 10 (12-20); Aspartate Amino Transferase 17 U/L (5-37); Bilirubin Total 0.8 mg/dL (0.0-1.0); Blood Urea Nitrogen 13 mg/dL (9-16); Calcium 9.7 mg/dL (8.4-10.2); Carbon Dioxide 27 mmol/L (22-29); Chloride 105 mmol/L (96-108); Cholesterol 147 mg/dL (<200); Estimated Glomerular Filt Rate > 60; Glucose Fasting 137 mg/dL (60-99); HDL Cholesterol 35 mg/dL (>40); LDL Cholesterol Calculated 89 mg/dL (<100); Potassium 4.3 mmol/L (3.3-5.1); Sodium 138 mmol/L (135-145); Total Protein 6.8 g/dL (6.5-8.0); Triglycerides 119 mg/dL (<150)
== END 2024-05-18 08:00 | disposition home or self-care (01) ==
LOC: HO.LAB 07:59
PROVIDERS: PCP Internal Medicine; Visit Provider Internal Medicine
DX: Z00.00 Encounter for general adult medical examination without abnormal findings (principal); E55.9 Vitamin D deficiency, unspecified; E78.5 Hyperlipidemia, unspecified
CPT/HCPCS: 36415; 80053; 80061; 82306

== ENCOUNTER 2024-05-19 10:40 | Outpatient (AMB) | payer MEDICARE, MEDICAID, SELFPAY ==
--- NOTE | 2024-05-19 10:41 | A.OFFPC_ITS ---
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 Accompanied by: Self / Same As Patient Allergies No Known Allergies [No Known Allergies*] Allergy (Verified 05/19/24 10:50) Medication List - Last Reconciled 05/19/24 by Raquel Mcduffie MD bisacodyl (Dulcolax (bisacodyl)) 10 mg (2 x 5 mg) PO ONCE 1 day cholecalciferol (vitamin D3) 50 mcg PO DAILY 90 days cholestyramine (with sugar) 4 gram 4 grams PO DAILY PRN 60 days fluoxetine 0 mg PO fluticasone propionate 50 mcg/actuation 1 spray intranasal DAILY hydrocortisone 1% (Anti-Itch (hydrocortisone)) 1 appl topical TID PRN 30 days ibuprofen 800 mg PO TID loratadine 10 mg PO DAILY 90 days omeprazole 20 mg PO DAILY 90 days polyethylene glycol 3350 (Miralax) 238 grams PO ONCE zolpidem 10 mg PO BEDTIME PRN Tobacco use date assessed: 05/19/24 Dental Screening Dental Screen Date: 11/19/23 Did you have a dental visit in the last 12 months?: Yes Did you have a dental problem in the last 6 months where you did not have access to dental care?: No Was dental information given to patient?: Patient has dentist HPI HPI Comments History of Present Illness Details This is a 59-year-old male with mild recurrent major depression, impaired glucose tolerance, chronic GERD and low vitamin-D that comes today for follow-up on his conditions. Depression stable with SSRIs and this is follow by Psychiatry. Has elevated blood glucose but normal A1c. Denies any polyuria, polydipsia or unintentional weight loss. GERD stable with PPIs. Vitamin-D still low and he is on supplements. Denies any chest pain or shortness on breath. [facility] Medical History Right upper quadrant abdominal pain Hypovitaminosis D Class 1 obesity with body mass index (BMI) of 33.0 to 33.9 in adult Mild recurrent major depression Mass of right thigh Left elbow pain Allergic rhinitis Depression Impaired glucose tolerance Insomnia Surgical History History of cholecystectomy History of eye surgery History of appendectomy Family History Father Diabetes Stroke Mother Skin cancer Son In good health Daughter In good health Social History Housing: House Alcohol intake: never Patient Tobacco Use Status: Never used Tobacco e-Cigarette/Vaping Use: Never Used Second Hand Smoke Exposure: No service: No Current occupational status: retired Cognitive needs: No Hearing needs: No Vision needs: No Questionnaire Thrive Questionnaire Date Thrive assessed: 11/19/23 WILLAM-7 AMB Questionnaire WILLAM-7 Date WILLAM - 7 assessed: 11/19/23 Source: Developed by Drs. Rolf Crespo, Collette Machado, Trent Nicholas and colleagues, with an educational eduardo from [employer]. Review of Systems Const All systems reviewed & are unremarkable except as noted in HPI and below Card Denies chest pain at rest, Denies chest pain with activity, Denies edema, Denies irregular heart rhythm, Denies claudication, Denies dyspnea, Denies dyspnea on exertion, Denies orthopnea, Denies paroxysmal nocturnal dyspnea and Denies slow heart rate Resp Denies cough, Denies dyspnea and Denies dyspnea on exertion GI Denies abdominal pain, Denies change in bowel habits, Denies excessive flatus, Denies nausea and Denies vomiting Physical exam (Primary Care) Vital Signs: Last Vital Signs BP 122/80 05/19/24 10:42 BMI result Body Mass Index 33.5 Tobacco/Smoking Status: Tobacco use Status Tobacco use date assessed 05/19/24 05/19/24 10:47 Patient Tobacco Use Status Never used Tobacco 05/19/24 10:47 e-Cigarette/Vaping Use Never Used 05/19/24 10:47 Thrive Assessment: Date of Thrive Assessment Date Thrive assessed 11/19/23 05/19/24 10:47 Resp Effort & Inspection: normal respiratory effort Auscultation: clear to auscultation bilaterally Cardio Jugular venous distension: no JVD Rate: regular rate Rhythm: regular rhythm Heart sounds: S1 normal heart sound present and S2 normal heart sound present Extrem General: Yes full ROM Results AMB Hemoglobin A1c AMB Hemoglobin A1c 5.4 % Last Edit by ADRIAN Friend on 05/19/24 10:5 8 Assessment and Plan Assessment & Plan (1) Impaired glucose tolerance: Code(s): R73.02 - Impaired glucose tolerance (oral) Plan: Continue low-carbohydrate diet. (2) Mild recurrent major depression: Code(s): F33.0 - Major depressive disorder, recurrent, mild Plan: Continue SSRIs. Follow-up with psychiatry. (3) Hypovitaminosis D: Code(s): E55.9 - Vitamin D deficiency, unspecified Plan: Continue vitamin-D supplements. (4) Chronic GERD: Code(s): K21.9 - Gastro-esophageal reflux disease without esophagitis Plan: Continue PPIs. Orders: Orders AMB Hemoglobin A1c Today R73.02 - Impaired glucose tolerance (oral) PSA,Total (Free>4and<10) Today Z12.5 - Encounter for screening for malignant neoplasm of prostate Referrals Open Access Screening Colonoscopy Referral Z12.11 - Encounter for screening for malignant neoplasm of colon Medications: Changed From fluticasone propionate 50 mcg/actuation 1 spray intranasal DAILY To fluticasone propionate 50 mcg/actuation 1 spray intranasal DAILY 30 days 16 grams 3RF Refilled cholecalciferol (vitamin D3) 50 mcg PO DAILY 90 days 90 caps 0RF Coding Level of Care Code Est Pt Level 4 (81214) Complex EM visit Add On G2211 Diagnoses Impaired glucose tolerance R73.02 Mild recurrent major depression F33.0 Hypovitaminosis D E55.9 Chronic GERD K21.9 Time Spent (min) 23
[2024-05-19 10:42] VITALS: BP 122/80; BMI 33.5
== END 2024-05-19 10:59 | disposition home or self-care (01) ==
PROVIDERS: PCP Internal Medicine; Visit Provider Internal Medicine
DX: R73.02 Impaired glucose tolerance (oral) (principal); F33.0 Major depressive disorder, recurrent, mild; E55.9 Vitamin D deficiency, unspecified; K21.9 Gastro-esophageal reflux disease without esophagitis
CPT/HCPCS: 83036; 99214; G2211

== ENCOUNTER 2024-11-24 09:43 | Outpatient (AMB) | payer MEDICARE, MEDICAID, SELFPAY ==
--- NOTE | 2024-11-24 09:46 | MHC.PC.OV ---
Vital Signs 11/24/24 09:50 Height 5 ft 9 in Weight 231 lb BMI 34.1 BP 136/80 Blood Pressure Location Lt brachial Position Sitting Intake Visit Reasons: PE Intake Note: Patient here for a physical exam Ticket Dispenser Changer Required: Yes Ticket Dispenser Changer Language: Mill Worker Name: Raquel Mcduffie MD Information Interpreted: non-clinical & clinical Accompanied by: Self / Same As Patient Allergies No Known Allergies [No Known Allergies*] Allergy (Verified 11/24/24 10:12) Medication List - Last Reconciled 11/24/24 by Raquel Mcduffie MD cholecalciferol (vitamin D3) 50 mcg PO DAILY 90 days cholestyramine (with sugar) 4 gram 4 grams PO DAILY PRN 60 days fluoxetine 0 mg PO fluticasone propionate 50 mcg/actuation 1 spray intranasal DAILY 30 days hydrocortisone 1% (Anti-Itch (hydrocortisone)) 1 appl topical TID PRN 30 days ibuprofen 800 mg PO TID loratadine 10 mg PO DAILY 90 days omeprazole 20 mg PO DAILY 90 days zolpidem 10 mg PO BEDTIME PRN Tobacco use date assessed: 11/24/24 Dental Screening Dental Screen Date: 11/24/24 Did you have a dental visit in the last 12 months?: Yes Did you have a dental problem in the last 6 months where you did not have access to dental care?: No Was dental information given to patient?: Patient has dentist HPI HPI Comments History of Present Illness Details The patient is a 59-year-old male presenting for an annual physical examination and follow-up on chronic medical conditions. He has a history of depressive disorder managed with fluoxetine and consults regularly with a psychiatrist. The patient is also on cholecystyramine for cholesterol management, vitamin D supplementation, and omeprazole for gastroesophageal reflux disease. The patient underwent a colonoscopy in 2019 where tubular adenomas were removed, and he was advised for a repeat colonoscopy based on findings. His last tetanus vaccination was in 2018. The patient mentioned soreness in an arm for the past week without clear etiology. He reported an elevated blood glucose level noted during the last laboratory assessment. There is no history of polydipsia or polyuria reported. Family history includes diabetes and stroke in the father and skin cancer in the mother. The patient has a non-smoking and non-drinking lifestyle. His weight has slightly increased to 231 pounds. - Tetanus vaccination last administered in 2017; next due in 2027. - Colonoscopy performed in 2019; follow-up advised for adenoma. - Seasonal influenza vaccination offered during this visit. - Vitamin D supplementation ongoing. [facility] Medical History Right upper quadrant abdominal pain Hypovitaminosis D Class 1 obesity with body mass index (BMI) of 33.0 to 33.9 in adult Mild recurrent major depression Mass of right thigh Left elbow pain Allergic rhinitis Depression Impaired glucose tolerance Insomnia Surgical History History of cholecystectomy History of eye surgery History of appendectomy Family History Father Diabetes Stroke Mother Skin cancer Son In good health Daughter In good health Social History Housing: House Alcohol intake: never Patient Tobacco Use Status: Never used Tobacco e-Cigarette/Vaping Use: Never Used Second Hand Smoke Exposure: No service: No Current occupational status: retired Cognitive needs: No Hearing needs: No Vision needs: No Questionnaire PHQ-9 Over the last 2 weeks, how often have you been bothered by any of the following problems? 1. Little interest or pleasure in doing things: not at all 2. Feeling down, depressed, or hopeless: not at all 3. Trouble falling or staying asleep, or sleeping too much: nearly every day 4. Feeling tired or having little energy: not at all 5. Poor appetite or overeating: not at all 6. Feeling bad about yourself - or that you are a failure or have let yourself or your family down: not at all 7. Trouble concentrating on things, such as reading the newspaper or watching television: not at all 8. Moving or speaking so slowly that other people could have noticed. Or the opposite - being so fidgety or restless that you have been moving around a lot more than usual: not at all 9. Thoughts that you would be better off or of hurting yourself in some way: not at all Total score: 3 Depression Screening Interpretation: Positive Depression Screening Follow-up: Existing condition, In treatment, Community Mental Health Worker F/U and Follow-up Visit Requested Depression Screening Done: Yes 03561 - PHQ-9 Billing: Yes Source: Developed by Drs. Rolf Crespo, Collette Machado, Trent Nicholas and colleagues, with an educational eduardo from [employer]. Thrive Questionnaire Date Thrive assessed: 11/24/24 I am a: Patient What is your living situation today?: I have a steady place to live Within the past 12 months, did the food you bought not last and you didn't have the money to get more?: I choose not to answer this question Within the past 12 months, did you worry whether your food would run out before you got money to buy more?: I choose not to answer this question Do you have trouble paying for medicines?: No Do you have trouble getting transportation to medical appointments?: No Do you have trouble paying your heating and electricity bill?: I choose not to answer this question Do you have trouble taking care of your child, family member or friend?: No Do you have trouble with day-to-day activities such as bathing, preparing meals, shopping, managing finances, etc.?: I choose not to answer this question Are you currently unemployed and looking for a job?: Yes Are you interested in more education?: No Please select the resources that you would like help with: None Currently or been in a relationship where the following occur: I choose not to answer THRIVE Score: 0 AUDIT C Alcohol Use Questionnaire (AUDIT-C) 1. How often do you have a drink containing alcohol?: Never Total Score: 0 Score Reviewed/Action Taken: No WILLAM-7 AMB Questionnaire WILLAM-7 Date WILLAM - 7 assessed: 11/24/24 Feeling nervous, anxious, or on edge: 0 = Not at all Not being able to stop or control worryin = Not at all Worrying too much about different things: 0 = Not at all Trouble relaxin = Not at all Being so restless that it is hard to sit still: 0 = Not at all Becoming easily annoyed or irritable: 0 = Not at all Feeling afraid as if something awful might happen: 0 = Not at all Total WILLAM-7 score (0-4 normal; 5-9 mild; 10-14 moderate; 15-21 severe): 0 Source: Developed by Collette Vasquez B.W. Carter, Trent Nicholas and colleagues, with an educational eduardo from [employer]. WILLAM-7 Assessment Billing WILLAM-7 Assessment Tool: WILLAM-7 Assessment 63480 Review of Systems Const All systems reviewed & are unremarkable except as noted in HPI and below Card Denies chest pain at rest, Denies chest pain with activity, Denies edema, Denies irregular heart rhythm, Denies claudication, Denies dyspnea, Denies dyspnea on exertion, Denies orthopnea, Denies paroxysmal nocturnal dyspnea and Denies slow heart rate Resp Denies cough, Denies dyspnea and Denies dyspnea on exertion Physical exam (Primary Care) Vital Signs: Last Vital Signs BP 136/80 11/24/24 09:50 BMI result Body Mass Index 34.1 Tobacco/Smoking Status: Tobacco use Status Tobacco use date assessed 11/24/24 11/24/24 09:55 Patient Tobacco Use Status Never used Tobacco 11/24/24 09:48 e-Cigarette/Vaping Use Never Used 11/24/24 09:48 PHQ-9: PHQ-9 Score PHQ-9: Total score 3 11/24/24 10:35 Depression Screening Interpretation: Positive Depression Screening Follow-up: Existing condition, In treatment, Community Mental Health Worker F/U and Follow-up Visit Requested Thrive Assessment: Date of Thrive Assessment Date Thrive assessed 11/24/24 11/24/24 09:48 Currently or been in a relationship where the following occur: I choose not to answer HENCT Head: Yes normal to inspection, Yes normocephalic and Yes atraumatic Ears: external ears normal Eyes General: appearance normal, both eyes and all related structures Eyelids: Yes eyelids normal Conjunctivae: conjunctivae normal Neck Neck: Yes normal visual inspection and Yes supple Resp Effort & Inspection: normal respiratory effort Auscultation: clear to auscultation bilaterally Cardio Jugular venous distension: no JVD Rate: regular rate Rhythm: regular rhythm Heart sounds: S1 normal heart sound present and S2 normal heart sound present GI Inspection: Yes normal to inspection Palpation (GI): Soft to palpation and nontender Auscultation: normal bowel sounds Skin General skin exam: no rashes or lesions noted Neuro General: no focal motor deficits Extrem General: Yes full ROM Psych Appearance: grossly normal Office Procedures Flu Questionnaire Does the patient have a severe egg allergy?: No Does the patient have severe life threatening allergies?: No Does the patient have a fever or illness today?: No Has the patient ever had Guillain-[place] Syndrome?: No Has the patient ever had any past reaction to a flu shot?: No Immunizations Fluarix Triv [id number] (PF) 45 mcg (15 mcg x 3)/0.5 mL IM syringe Performing Provider: Raquel Mcduffie MD Performing [facility] Administered by: ADRIAN Friend on 11/24/24 10:35 Dose Route Admin Location Dispensed Lot Number Expiration Date NDC [employer] Developer 0.5 mL IM Right Deltoid 0.5 mL [id number] 04/19/25 [id number] [employer] ([employer]) VIS Given Date VIS Provided VIS Publication Date 11/24/24 Single Vaccine 21 Eligibility Eligibility Date Funding Source Not [facility] Eligible 11/24/24 Private Coding Level of Care Code Est Pt Prev Care 40-64y(83522) Diagnoses Physical exam Z00.00 Mild recurrent major depression F33.0 Additional Codes WILLAM-7 Assessment Billing - WILLAM-7 Assessment Tool: WILLAM-7 Assessment 81026 ([id number]) PHQ-9 - 86797 - PHQ-9 Billing: Yes ([id number]) Time Spent (min) 31 Assessment & Plan Assessment & Plan (1) Physical exam: Code(s): Z00.00 - Encounter for general adult medical examination without abnormal findings Category: Medical (2) Mild recurrent major depression: Code(s): F33.0 - Major depressive disorder, recurrent, mild Category: Medical Plan - Repeat colonoscopy referral due to prior removal of tubular adenoma. - Influenza vaccination administered today. - Lab tests to monitor blood glucose levels, consider fasting glucose assessment. - Continue current medication regimen for depression, vitamin D deficiency, gastroesophageal reflux disease, and insomnia. - Follow-up visit scheduled to review laboratory results and discuss any adjustments in management based on findings. Patient was informed and verbally consented to the use of an ambient scribe for clinic note documentation during this visit. I discussed with the patient the importance of regular colonoscopic surveillance following prior adenoma removal due to increased colonic cancer risk. We reviewed the benefits of the influenza vaccination and resolved to administer it today. We discussed his elevated blood glucose level and the need for laboratory reassessment to rule out potential diabetes mellitus. Current management strategies for his gastroesophageal reflux and sleep disturbance were reviewed without changes, with emphasis on adherence to the prescribed treatment plan. I advised weight maintenance and healthy lifestyle choices to manage his conditions effectively. Orders: Orders Vitamin D 25-OH Total Today E55.9 - Vitamin D deficiency, unspecified Lipid Panel Today E78.5 - Hyperlipidemia, unspecified Comprehensive [place]. Panel Fast Today R73.02 - Impaired glucose tolerance (oral) Influenza [id number] Immunization Today Z23 - Encounter for immunization Referrals Open Access Screening Colonoscopy Referral Z12.12 - Encounter for screening for malignant neoplasm of rectum Patient Instructions: - Get a flu shot before leaving. - Schedule a colonoscopy for follow-up adenoma surveillance. - Maintain current medication regimen as prescribed. - Have blood work done for glucose monitoring within the next week. - Report any new symptoms or concerns to the office promptly. - Prioritize a balanced diet and regular exercise for weight management.
[2024-11-24 09:50] VITALS: BP 136/80; BMI 34.1
--- OUTSIDE RECORDS SUMMARY | 2024-11-24 10:17 | XMS_ITS | Encounter Summary ---
Author Organization [employer] [facility] Address [address] [place] [address] 7 [place] [address] Care Team Providers Care Knitting Machine Mechanic Name Role Phone Unavailable Primary Care Provider Unavailabl e Encounter Details Date Type Department Care Team (Latest Contact Info) Description 10/15/2019 Abstract [facility] CONVERSIONS Dental, Provider, DDS Social History Tobacco Use Types Packs/Day Years Used Date Smoking Tobacco: Never Assessed Sex and Gender Information Value Date Recorded Sex Assigned at Male 08/20/2022 10:16 AM EDT Legal Sex Male 10:16 AM EDT Gender Identity Male 08/20/2022 10:16 AM EDT Sexual Orientation Straight 08/20/2022 10 :16 AM EDT documented as of this encounter Plan of Treatment Upcoming Encounters Date Type Department Care Team (Late st Contact Info) Description 12/17/2024 10:00 AM EST Office Visit [facility] [address] [place] [phone] Annelise Reyna BDS [address] [place] [address] 05/26/2025 1:00 PM EDT Office Visit [facility] [address] [place] [phone] Cheryl Mckeon [address] [place] [address] documented as of this encounter Visit Diagnoses Not on filedocumented in this encounter
--- OUTSIDE RECORDS SUMMARY | 2024-11-24 10:17 | XMS_ITS | Encounter Summary ---
Author Organization [employer] [facility] Address [address] [place] [address] 7 [place] [address] Care Team Providers Care Adjudication Specialist Name Role Phone Unavailable Primary Care Provider Unavailabl e Encounter Details Date Type Department Care Team (Latest Contact Info) Description 11/21/2020 Abstract [facility] CONVERSIONS Dental, Provider, DDS Social History Tobacco [...] Description 12/17/2024 10:00 AM EST Office Visit [facility] [address] [place] [phone] Annelise Reyna BDS [address] [place] [address] 05/26/2025 1:00 PM EDT Office Visit [facility] [address] [place] [phone] Cheryl Mckeon [address] [place] [phone] documented as of this encounter Visit Diagnoses Not on filedocumented in this encounter
--- OUTSIDE RECORDS SUMMARY | 2024-11-24 10:17 | XMS_ITS | Encounter Summary ---
Author Organization [employer] [facility] Address [address] [place] [address] 7 [place] [address] Care Team Providers Care Die Cutter Name Role Phone Unavailable Primary Care Provider Unavailabl e Reason for Visit * Reason Comments Routine Cleaning Encounter Details Date Type Department Care Team (Late st Contact Info) Description 11/19/2024 3:00 PM EST Office Visit [facility] [address] [place] [address] [phone] Cheryl Mckeon [address] [place], [place] [phone] Social History Tobacco Use Types Packs/Day Years Used Date Smoking Tobacco: Never Smokeless Tobacco: Never Sex and Gender Information Value Date Recorded Sex Assigned at Male 08/20/2022 10:16 AM EDT Legal Sex Male 10:16 AM EDT Gender Identity Male 08/20/2022 10:16 AM EDT Sexual Orientation Straight 08/20/2022 10 :16 AM EDT documented as of this encounter Last Filed Vital Signs Vital Sign Reading Time Taken Comments Blood Pressure 116/76 11/19/2024 3:08 PM EST Pulse 64 11/19/2024 3:08 PM EST Temperature - - Respiratory Rate - - Oxygen Saturation - - Inhaled Oxygen Concentration - - Weight - - Height - - Body Mass Index - - documented in this encounter Progress Notes * Cheryl Mckeon - 11/19/2024 3:00 PM EST Patient ID: Geo Maldonado is a 59 y.o. male. Time Out: Date: 11/19/2024 Location: [facility] Tooth: all Procedure: X-rays and Prophylaxis Verified the above with patient, animal care assistant, and provider. Confirmed via patient's chart, intraorally and by radiographs. Prototype Sewer: not applicable Treatment Provided Dental procedures in this visit D9450 - ADJUNCTIVE GENERAL SERVICES - PROFESSIONAL VISITS - CASE PRESENTATION, SUBSEQUENT TO DETAILED AND EXTENSIVE TREATMENT PLANNING (Completed) Service provider: Cheryl Mckeon Billing provider: Yariel Cabrera DDS D1110 - PROPHYLAXIS - ADULT (Completed) Service provider: Cheryl Mckeon Billing provider: Yariel Cabrera DDS D0270 - BITEWING - SINGLE RADIOGRAPHIC IMAGE (Completed) Service provider: Cheryl Mckeon Billing provider: Yariel Cabrera DDS D0220 - INTRAORAL - PERIAPICAL FIRST RADIOGRAPHIC IMAGE (Completed) Service provider: Cheryl Mckeon Billing provider: Yariel Cabrera DDS Instruments Used: Hand Scalers and Prophy angle Calculus: Light Plaque: Light Stain: None Bleeding: Light Gingiva: inflamed OH: Fair OCS: neg findings HNE: neg findings Oral hygiene instructions provided to patient including brushing technique and flossing. Recommendations: Floss daily Recall Frequency: 6 mo NV: #28- DO broken Hygienist: Cheryl Mckeon RDH documented in this encounter Plan of Treatment Upcoming Encounters Date Type Department Care Team (Late st Contact Info) Description 12/17/2024 10:00 AM EST Office Visit [facility] [address] [place] [phone] Annelise Reyna BDS [address] [place] [phone] 05/26/2025 1:00 PM EDT Office Visit [facility] [address] [place] [phone] Cheryl Mckeon [address] [place] [phone] documented as of this encounter Procedures Procedure Name Priority Date/Time Associated Diagnosis Comments PROPHYLAXIS - ADULT Routine 11/19/2024 3 :00 PM EST INTRAORAL - PERIAPICAL FIRST RADIOGRAPHIC IMAGE Routine 11/19/2024 3:00 PM EST ADJUNCTIVE GENERAL SERVICES - PROFESSIONAL VISITS - CASE PRESENTATION, SUBSEQUENT TO DETAILED AND EXTENSIVE TREATMENT PLANNING Routine 11/19/2024 3:00 PM EST BITEWING - SINGLE RADIOGRAPHIC IMAGE Routine 11/19/2024 3:00 PM EST documented in this encounter Visit Diagnoses Not on filedocumented in this encounter
--- OUTSIDE RECORDS SUMMARY | 2024-11-24 10:17 | XMS_ITS | Clinical Summary ---
Author Organization [employer] [facility] Address [address] [place] [address] 7 [place] [address] Care Team Providers Care Roll Table Operator Name Role Phone Unavailable Primary Care Provider Unavailabl e Allergies No known active allergies Medications cholecalciferol VITAMIN D (Vitamin D-3) 50 MCG (1999) capsule TAKE 1 CAPSULE BY MOUTH EVERY DAY FOR 90 DAYS 01/20/2024 Active Encounters Date Type Department Care Team Description 11/19/2024 3:00 PM EST Office Visit [facility] D[facility] [address] [place] [address] [phone] Cheryl Mckeon from Last 3 Months Social History Tobacco Use Types Packs/Day Years Used Date Smoking Tobacco: Never Smokeless Tobacco: Never Tobacco Cessation:Counseling Given: Not Answered Sex and Gender Information Value Date Recorded Sex Assigned at Male 08/20/2022 10:16 AM EDT Legal Sex Male 10:16 AM EDT Gender Identity Male 08/20/2022 10:16 AM EDT Sexual Orientation Straight 08/20/2022 10 :16 AM EDT Last Filed Vital Signs Vital Sign Reading Time Taken Comments Blood Pressure 116/76 11/19/2024 3:08 PM EST Pulse 64 11/19/2024 3:08 PM EST Temperature - - Respiratory Rate - - Oxygen Saturation - - Inhaled Oxygen Concentration - - Weight - - Height - - Body Mass Index - - Plan of Treatment Upcoming Encounters Date Type Department Care Team (Late st Contact Info) Description 12/17/2024 10:00 AM EST Office Visit [facility] [address] [place] [address] [phone] Annelise Reyna BDS [address] [place] [address] [phone] 05/26/2025 1:00 PM EDT Office Visit [facility] [address] [place] [address] Cheryl Mckeon [address] [place], [place] [phone] Health Maintenance Due Date Last Done Comments CT Colonography 1967 Colonoscopy 1967 Colorectal Cancer Screening 1967 Depression Screening 1967 FIT DNA/Cologuard 1967 FIT 1967 FOBT 1967 HIV Screening 1967 Lipid Panel 1967 SDOH Screening 1967 Sigmoidoscopy 1967 Alcohol/Substance Use Screening 1979 Hepatitis C Screening 1985 Hepatitis B Vaccines (1 of 3 - 19+ 3-dose series) 1986 Pneumococcal Vaccine: 50+ Years (1 of 1 - PCV) 2017 Zoster Vaccines (1 of 2) 2017 Dental X-Ray: Full Mouth 11/05/2018 11/04/2015, 08/23 COVID-19 Vaccine (2023- season) 2024 04/05/2021, 02/08/2021 Influenza Vaccine (#1) 2024 11/19/2023, 2020 Dental Oral Exam 09/30/2024 03/30/2024, 10/2020, 10/15/2019, Additional history exists Tobacco Screening 03/30/2025 03/30/2024 Dental Prophylaxis 05/20/2025 11/19/2024, 0 03/30/2024, 11/21/2020, Additional history exists Dental X-Ray: Bitewings 11/20/2025 11/19/19 25, 03/30/2024, 09/19/2009 DTaP/Tdap/Td Vaccines (3 - Td or Tdap) 05/19/2028 05/19/2018, 07/09/2011 RSV Patients and Patients Aged 60 years or older (1 - 1-dose 75+ series) 2042 HIB Vaccines Aged Out No longer eligi ble based on patient's age to complete this topic HPV Vaccines Aged Out No longer eligi ble based on patient's age to complete this topic Hepatitis A Vaccines Aged Out No long er eligible based on patient's age to complete this topic IPV Vaccines Aged Out No longer eligi ble based on patient's age to complete this topic Meningococcal Vaccine Aged Out No jimmie colette eligible based on patient's age to complete this topic RSV under 20 months Aged Out No longe r eligible based on patient's age to complete this topic Rotavirus Vaccines Aged Out No longer eligible based on patient's age to complete this topic Procedures Procedure Name Priority Date/Time Associated Diagnosis Comments INTRAORAL - PERIAPICAL FIRST RADIOGRAPHIC IMAGE Routine 11/19/2024 3:00 PM EST BITEWING - SINGLE RADIOGRAPHIC IMAGE Routine 11/19/2024 3:00 PM EST PROPHYLAXIS - ADULT Routine 11/19/2024 3 :00 PM EST ADJUNCTIVE GENERAL SERVICES - PROFESSIONAL VISITS - CASE PRESENTATION, SUBSEQUENT TO DETAILED AND EXTENSIVE TREATMENT PLANNING Routine 11/19/2024 3:00 PM EST PERIODIC ORAL EVALUATION - ESTABLISHED PATIENT Routine 03/30/2024 3:00 PM EDT PANORAMIC RADIOGRAPHIC IMAGE Routine 11/04/2015 12:00 AM EST from Last 3 Months or Most Recently Relevant to Health Maintenance Insurance [facility] MEDICAID STAND ADULT
== END 2024-11-24 10:35 | disposition home or self-care (01) ==
PROVIDERS: PCP Internal Medicine; Visit Provider Internal Medicine
DX: Z00.00 Encounter for general adult medical examination without abnormal findings (principal); F33.0 Major depressive disorder, recurrent, mild; Z23 Encounter for immunization

== ENCOUNTER → 2024-11-24 09:43 | Outpatient (BNVA) | payer MEDICARE, MEDICAID, SELFPAY | PROVIDERS: PCP Internal Medicine; Visit Provider Internal Medicine | DX: Z00.00 Encounter for general adult medical examination without abnormal findings (principal); Z23 Encounter for immunization; F33.0 Major depressive disorder, recurrent, mild | CPT/HCPCS: 90471; 90656; 96127; 99396 ==

== ENCOUNTER 2025-06-01 11:12 | Outpatient (REF) | payer MEDICARE, MEDICAID, SELFPAY ==
--- OUTSIDE RECORDS SUMMARY | 2025-06-01 12:19 | XMS_ITS | Encounter Summary ---
Author Organization [employer] [facility] Address [address] [place] [address] Care Team Providers Care Arboriculture Instructor Name Role Phone Unavailable Primary Care Provider Unavailabl e Encounter Details Date Type Department Care Team (Latest Contact Info) Description 11/21/2020 Abstract [facility] CONVERSIONS Dental, Provider, DDS Social History Tobacco Use Types Packs/Day Years Used Date Smoking Tobacco: Never Assessed Sex and Gender Information Value Date Recorded Sex Assigned at Male 08/20/2022 10:16 AM EDT Legal Sex Male 10:16 AM EDT Gender Identity Male 08/20/2022 10:16 AM EDT Sexual Orientation Straight 08/20/2022 10 :16 AM EDT documented as of this encounter Plan of Treatment Not on file documented as of this encounter Visit Diagnoses Not on filedocumented in this encounter
[2025-06-01 12:51] LABS: Alanine Aminotransferase 21 U/L (0-40); Albumin Level 4.7 g/dL (3.5-5.0); Alkaline Phosphatase 88 U/L (39-117); Anion Gap 13 (12-20); Aspartate Amino Transferase 27 U/L (5-37); Blood Urea Nitrogen 11 mg/dL (9-16); Calcium 9.1 mg/dL (8.4-10.2); Carbon Dioxide 26 mmol/L (22-29); Chloride 108 mmol/L (96-108); Cholesterol 154 mg/dL (<200); Estimated Glomerular Filt Rate > 60; HDL Cholesterol 35 mg/dL (>40); Potassium 4.5 mmol/L (3.3-5.1); Sodium 142 mmol/L (135-145); Total Protein 7.2 g/dL (6.5-8.0); Triglycerides 120 mg/dL (<150)
== END 2025-06-01 11:13 | disposition home or self-care (01) ==
LOC: HO.LAB 11:12
PROVIDERS: PCP Internal Medicine; Visit Provider Internal Medicine
DX: R73.02 Impaired glucose tolerance (oral) (principal); E55.9 Vitamin D deficiency, unspecified; E78.5 Hyperlipidemia, unspecified
CPT/HCPCS: 36415; 80053; 80061; 82306

== ENCOUNTER 2025-06-02 13:17 | Outpatient (AMB) | payer MEDICARE, MEDICAID, SELFPAY ==
[2025-06-02 13:21] VITALS: BP 118/80; PULSE 76; RESP 18; O2SAT 98; BMI 33.4
--- NOTE | 2025-06-02 13:21 | A.OFFPC_ITS ---
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 Accompanied by: Allergies No Known Allergies (No Known Allergies*) Allergy (Verified 06/02/25 14:02) Medication List - Last Reconciled 06/02/25 by Raquel Mcduffie MD cholecalciferol (vitamin D3) 50 mcg PO DAILY 90 days cholestyramine (with sugar) 4 gram 4 grams PO DAILY PRN 60 days fluoxetine 0 mg PO fluticasone propionate 50 mcg/actuation 1 spray intranasal DAILY 30 days hydrocortisone 1% (Anti-Itch (hydrocortisone)) 1 appl topical TID PRN 30 days ibuprofen 800 mg PO TID loratadine 10 mg PO DAILY 90 days omeprazole 20 mg PO DAILY 90 days zolpidem 10 mg PO BEDTIME PRN Tobacco use date assessed: 06/02/25 Dental Screening Dental Screen Date: 06/02/25 Did you have a dental visit in the last 12 months?: No Did you have a dental problem in the last 6 months where you did not have access to dental care?: No Was dental information given to patient?: Patient has dentist HPI HPI Comments History of Present Illness Details The patient is a 60-year-old male presenting for a routine check-up and management of chronic conditions. The patient has a history of Diabetes Mellitus, with recent laboratory results indicating elevated blood glucose levels. He denies experiencing symptoms such as excessive thirst, frequent urination, or unintentional weight loss. The patient has been diagnosed with Vitamin D deficiency, with recent levels noted to be low at 21.7 ng/mL. He reports inconsistent intake of Vitamin D supplements, particularly during a recent stay in [place]. Hyperlipidemia is also a concern, with cholesterol levels recorded at 154 mg/dL and HDL at 37 mg/dL. The [place] Risk Score was calculated to be 7%, indicating a moderate risk for cardiovascular events. The patient suffers from allergic rhinitis, managed with fluticasone nasal spray and loratadine. Gastroesophageal reflux disease is managed with omeprazole, which the patient uses sparingly due to potential side effects. The patient has a history of sleep apnea, previously managed with a CPAP machine, though he has not used it recently. He denies excessive daytime sleepiness or falling asleep in inappropriate situations. Dozed off while watching TV, sitting and reading, lying down in the afternoon without alcohol and sitting a public place with an [place] score Scale of 12. The patient reports a history of hemorrhoids, which were symptomatic during a recent trip to [place]. A colonoscopy in 2019 revealed multiple tubular adenomas, necessitating follow- up surveillance. [facility] Medical History (Updated 06/02/25 @ 14:16 by Raquel Mcduffie MD) Right upper quadrant abdominal pain Hypovitaminosis D Class 1 obesity with body mass index (BMI) of 33.0 to 33.9 in adult Mild recurrent major depression Mass of right thigh Left elbow pain Allergic rhinitis Depression Impaired glucose tolerance Insomnia Surgical History History of cholecystectomy History of eye surgery History of appendectomy Family History Father Diabetes Stroke Mother Skin cancer Son In good health Daughter In good health Social History Housing: House Alcohol intake: never Patient Tobacco Use Status: Never used Tobacco e-Cigarette/Vaping Use: Never Used Second Hand Smoke Exposure: No service: No Current occupational status: retired Cognitive needs: No Hearing needs: No Vision needs: No Questionnaire PHQ-9 Over the last 2 weeks, how often have you been bothered by any of the following problems? 1. Little interest or pleasure in doing things: not at all 2. Feeling down, depressed, or hopeless: not at all 3. Trouble falling or staying asleep, or sleeping too much: nearly every day 4. Feeling tired or having little energy: not at all 5. Poor appetite or overeating: not at all 6. Feeling bad about yourself - or that you are a failure or have let yourself or your family down: not at all 7. Trouble concentrating on things, such as reading the newspaper or watching television: not at all 8. Moving or speaking so slowly that other people could have noticed. Or the opposite - being so fidgety or restless that you have been moving around a lot more than usual: not at all 9. Thoughts that you would be better off or of hurting yourself in some way: not at all Total score: 3 Depression Screening Interpretation: Positive Depression Screening Follow-up: Existing condition, In treatment, Community Mental Health Worker F/U and Follow- up Visit Requested Depression Screening Done: Yes 79282 - PHQ-9 Billing: Yes Source: Developed by Drs. Rolf Crespo, Collette Machado, Trent Nicholas and colleagues, with an educational eduardo from [employer]. Thrive Questionnaire Date Thrive assessed: 06/02/25 I am a: Patient What is your living situation today?: I have a steady place to live Within the past 12 months, did the food you bought not last and you didn't have the money to get more?: I choose not to answer this question Within the past 12 months, did you worry whether your food would run out before you got money to buy more?: I choose not to answer this question Do you have trouble paying for medicines?: No Do you have trouble getting transportation to medical appointments?: No Do you have trouble paying your heating and electricity bill?: I choose not to answer this question Do you have trouble taking care of your child, family member or friend?: No Do you have trouble with day-to-day activities such as bathing, preparing meals, shopping, managing finances, etc.?: I choose not to answer this question Are you currently unemployed and looking for a job?: Yes Are you interested in more education?: No Please select the resources that you would like help with: None Currently or been in a relationship where the following occur: I choose not to answer THRIVE Score: 0 AUDIT C Alcohol Use Questionnaire (AUDIT-C) 1. How often do you have a drink containing alcohol?: Never 3. How often do you have six or more drinks on one occasion?: Never Total Score: 0 Score Reviewed/Action Taken: No WILLAM-7 AMB Questionnaire WILLAM-7 Date WILLAM - 7 assessed: 06/02/25 Feeling nervous, anxious, or on edge: 0 = Not at all Not being able to stop or control worryin = Not at all Worrying too much about different things: 0 = Not at all Trouble relaxin = Not at all Being so restless that it is hard to sit still: 0 = Not at all Becoming easily annoyed or irritable: 0 = Not at all Feeling afraid as if something awful might happen: 0 = Not at all Total WILLAM-7 score (0-4 normal; 5-9 mild; 10-14 moderate; 15-21 severe): 0 Source: Developed by Drs. Rolf Crespo, Collette Machado, Trent Nicholas and colleagues, with an educational eduardo from [employer]. WILLAM-7 Assessment Billing WILLAM-7 Assessment Tool: WILLAM-7 Assessment 91871 Review of Systems Const All systems reviewed & are unremarkable except as noted in HPI and below Card Denies chest pain at rest, Denies chest pain with activity, Denies edema, Denies irregular heart rhythm, Denies claudication, Denies dyspnea, Denies dyspnea on exertion, Denies orthopnea, Denies paroxysmal nocturnal dyspnea and Denies slow heart rate Resp Denies cough, Denies dyspnea and Denies dyspnea on exertion Physical exam (Primary Care) Vital Signs: Last Vital Signs Pulse 76 06/02/25 13:21 Resp 18 06/02/25 13:21 BP 118/80 06/02/25 13:21 Pulse Ox 98 06/02/25 13:21 Oxygen Delivery Method Room Air 06/02/25 13:21 BMI result Body Mass Index 33.4 Tobacco/Smoking Status: Tobacco use Status Tobacco use date assessed 06/02/25 06/02/25 13:30 Patient Tobacco Use Status Never used Tobacco 06/02/25 13:30 e-Cigarette/Vaping Use Never Used 06/02/25 13:30 PHQ-9: PHQ-9 Score PHQ-9: Total score 3 06/02/25 14:08 Depression Screening Interpretation: Positive Depression Screening Follow-up: Existing condition, In treatment, Community Mental Health Worker F/U and Follow- up Visit Requested Thrive Assessment: Date of Thrive Assessment Date Thrive assessed 06/02/25 06/02/25 13:30 Currently or been in a relationship where the following occur: I choose not to answer Resp Effort & Inspection: normal respiratory effort Auscultation: clear to auscultation bilaterally Cardio Jugular venous distension: no JVD Rate: regular rate Rhythm: regular rhythm Heart sounds: S1 normal heart sound present and S2 normal heart sound present Extrem General: Yes full ROM Coding Level of Care Code Est Pt Level 4 (52305) Complex EM visit Add On G2211 Diagnoses Mild recurrent major depression F33.0 Pure hypercholesterolemia E78.00 Impaired glucose tolerance R73.02 Hypovitaminosis D E55.9 Allergic rhinitis J30.9 Additional Codes WILLAM-7 Assessment Billing - WILLAM-7 Assessment Tool: WILLAM-7 Assessment [id number] ([id number]) PHQ-9 - 85933 - PHQ-9 Billing: Yes ([id number]) Time Spent (min) 24 Assessment & Plan Assessment & Plan (1) Mild recurrent major depression: Code(s): F33.0 - Major depressive disorder, recurrent, mild Category: Medical (2) Pure hypercholesterolemia: Code(s): E78.00 - Pure hypercholesterolemia, unspecified Category: Medical (3) Impaired glucose tolerance: Code(s): R73.02 - Impaired glucose tolerance (oral) Category: Medical (4) Hypovitaminosis D: Code(s): E55.9 - Vitamin D deficiency, unspecified Category: Medical (5) Allergic rhinitis: Code(s): J30.9 - Allergic rhinitis, unspecified Category: Medical Plan The management plan includes monitoring the patient's blood glucose levels and repeating laboratory tests in six months to assess the status of Diabetes Mellitus. Vitamin D supplementation should be continued, with dietary adjustments to include more vitamin D-rich foods such as salmon. For hyperlipidemia, the patient may benefit from a low-dose statin, given the [place] Risk Score of 7%. Allergic rhinitis management includes continued use of fluticasone nasal spray and loratadine as needed. Gastroesophageal reflux disease should be managed with omeprazole, used sparingly to avoid side effects. The patient is advised to resume use of the CPAP machine for sleep apnea management. A follow-up colonoscopy is recommended due to the history of tubular adenomas. Patient was informed and verbally consented to the use of an ambient scribe for clinic note documentation during this visit. Orders: Orders Comprehensive [place]. Panel Fast 6 Months R73.02 - Impaired glucose tolerance (oral) Vitamin D 25-OH Total 6 Months E55.9 - Vitamin D deficiency, unspecified RT home sleep study Today G47.33 - Obstructive sleep apnea (adult) (pediatric) Lipid Panel 6 Months E78.5 - Hyperlipidemia, unspecified Referrals Open Access Screening Colonoscopy Referral Z12.12 - Encounter for screening for malignant neoplasm of rectum Medications: New rosuvastatin 5 mg PO DAILY 90 tabs 1RF 90 days E78.00 - Pure hypercholester olemia, unspecified
--- OUTSIDE RECORDS SUMMARY | 2025-06-02 13:47 | XMS_ITS | Encounter Summary ---
Author Organization [facility] Address [address] [place] [address] Care Team Providers Care Sieve Repairer Name Role Phone Unavailable Primary Care Provider [...]
== END 2025-06-02 14:23 | disposition home or self-care (01) ==
LOC: HO.HMCH 13:18
PROVIDERS: PCP Internal Medicine; Visit Provider Internal Medicine
DX: F33.0 Major depressive disorder, recurrent, mild (principal); E78.00 Pure hypercholesterolemia, unspecified; R73.02 Impaired glucose tolerance (oral); E55.9 Vitamin D deficiency, unspecified; J30.9 Allergic rhinitis, unspecified

== ENCOUNTER → 2025-06-02 13:17 | Outpatient (BNVA) | payer MEDICARE, MEDICAID, SELFPAY | PROVIDERS: PCP Internal Medicine; Visit Provider Internal Medicine | DX: E11.9 Type 2 diabetes mellitus without complications (principal); E55.9 Vitamin D deficiency, unspecified; J30.9 Allergic rhinitis, unspecified; K21.9 Gastro-esophageal reflux disease without esophagitis; G47.30 Sleep apnea, unspecified; K64.9 Unspecified hemorrhoids; F33.0 Major depressive disorder, recurrent, mild; E78.00 Pure hypercholesterolemia, unspecified; Z99.89 Dependence on other enabling machines and devices | CPT/HCPCS: 96127; 99212 ==

== ENCOUNTER → 2025-08-23 07:34 | Outpatient (REF) | payer MEDICARE, MEDICAID, SELFPAY ==
--- OUTSIDE RECORDS SUMMARY | 2025-08-23 07:37 | XMS_ITS | Clinical Summary ---
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 Name Role Phone Unavailable Primary Care Provider Unavailabl e Allergies No known active allergies Medications cholecalciferol VITAMIN D (Vitamin D-3) 50 MCG (1999 HI) capsule TAKE 1 CAPSULE BY MOUTH EVERY DAY FOR 90 DAYS 01/20/2024 Active Social History Tobacco Use Types Packs/Day Years [...] Mass Index - - Plan of Treatment Health Maintenance Due Date Last Done Comments CT Colonography 1967 Colonoscopy 1967 Colorectal Cancer Screening 1967 Depression Screening 1967 FIT DNA/Cologuard 1967 FIT 1967 FOBT 1967 HIV Screening 1967 Lipid Panel 1967 SDOH Screening 1967 Sigmoidoscopy 1967 Disability Screening 1967 Alcohol/Substance Use Screening 1979 Hepatitis C Screening 1985 Hepatitis B Vaccines (1 of 3 - 19+ 3-dose series) 1986 Pneumococcal Vaccine: 50+ Years (1 of 1 - PCV) 2017 Zoster Vaccines (1 of 2) 2017 Dental X-Ray: Full Mouth 11/05/2018 11/04/2015, 08/23 Dental Oral Exam 09/30/2024 03/30/2024, 10/2020, 10/15/2019, Additional history exists Dental Prophylaxis 05/20/2025 11/19/2024, 0 03/30/2024, 11/21/2020, Additional history exists COVID-19 Vaccine ( - season) 2025 04/05/2021, 02/08/2021 Influenza Vaccine (#1) 2025 , 11/19/2023, 08/23/2021 Dental X-Ray: Bitewings 11/20/2025 11/19/19 25, 03/30/2024, 09/19/2009 Tobacco Screening 12/17/2025 12/17/2024 DTaP/Tdap/Td Vaccines (3 - Td or Tdap) [...] patient's age to complete this topic Meningococcal B Vaccine Aged Out No l onger eligible based on patient's age to complete [...] ADULT Routine 11/19/2024 3 :00 PM EST BITEWING - SINGLE RADIOGRAPHIC IMAGE Routine 11/19/2024 3:00 PM EST PERIODIC ORAL EVALUATION - ESTABLISHED PATIENT Routine 03/30/2024 3:00 PM EDT PANORAMIC RADIOGRAPHIC IMAGE Routine 11/04/2015 12:00 AM EST from Last 3 Months or Most Recently Relevant to Health Maintenance Insurance [place] AD[place]
--- OUTSIDE RECORDS SUMMARY | 2025-08-23 07:37 | XMS_ITS | Encounter Summary ---
Author Organization [employer] 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
--- OUTSIDE RECORDS SUMMARY | 2025-08-23 07:37 | XMS_ITS | Encounter Summary ---
Author Organization [facility] Address [address] [place] [address] Care Team Providers Care Hospital Unit Clerk Name Role Phone Unavailable Primary Care Provider [...]
== END ==
LOC: HO.SL 07:34
PROVIDERS: PCP Internal Medicine; Visit Provider Internal Medicine
DX: G47.33 Obstructive sleep apnea (adult) (pediatric) (principal)
CPT/HCPCS: 95806

== ENCOUNTER → 2025-08-23 08:45 | Outpatient (BNV) | payer MEDICARE, MEDICAID, SELFPAY | PROVIDERS: PCP Internal Medicine; Visit Provider Internal Medicine | DX: G47.33 Obstructive sleep apnea (adult) (pediatric) (principal) | CPT/HCPCS: 95806 ==